=== PATIENT | female | born 1965 | race Caucasian/White ===

== ENCOUNTER 2020-02-19 09:40 | Emergency (ER) | payer MEDICAID ==
[~2020-02-19] VITALS: Ht 160 cm; Wt 52.0 kg
[2020-02-19] MEDS ORDERED: ACETAMINOPHEN WITH CODEINE 300/30MG TABLET PO ONE (10:15)
[2020-02-19] MEDS ORDERED: PREDNISONE 20MG TABLET PO ONE (10:15)
[2020-02-19 10:34] VITALS: BP 134/90
== END 2020-02-19 11:12 | disposition home or self-care (01) ==
LOC: ER 09:40
DX: B02.9 Zoster without complications (principal)
CPT/HCPCS: 99283; J7512

== ENCOUNTER 2020-03-13 10:21 | Emergency (ER) | payer MEDICAID ==
[~2020-03-13] VITALS: Ht 165.1 cm; Wt 60.0 kg
[2020-03-13 10:38] VITALS: BP 129/91
== END 2020-03-13 11:44 | disposition home or self-care (01) ==
LOC: ER 10:21
DX: B02.9 Zoster without complications (principal)
CPT/HCPCS: 99281